=== PATIENT | male | born 1945 | race Caucasian/White ===

== ENCOUNTER 2018-11-22 16:57 | Emergency (ER) | payer SELFPAY ==
[~2018-11-22] VITALS: Ht 165.1 cm; Wt 77.1 kg
[2018-11-22 17:14] VITALS: BP 168/94
--- NOTE | 2018-11-22 18:11 | NUR ---
PATIENT PRESENTS TO ED WITH C/O SHARP 5/10 PAIN AND OPEN WOUND TO BLE, LEFT UPPER ARM AND BUTTOCKS X1 WEEK. BLE 2+ PITTING EDEMA, WITH ERYTEMA, TENDER TO TOUCH AND WOUNDS PRESENT, UNSTEADY GAIT NOTED; PT DENIES ANY FEVER, CP, SOB, OR COUGH AT THIS TIME; PATIENT STATES PAIN OF 5/10 IF NOT TOUCHING THE INFECTION AREA, 10/10 WHEN TOUCHING. VSS; PATIENT POSITIONED FOR COMFORT; HOB ELEVATED; BEDRAILS UP X2; BED DOWN. ER MD MADE AWARE OF PT STATUS.
--- NOTE | 2018-11-22 18:26 | NUR ---
Patient being evaluated by physician at bedside.
--- NOTE | 2018-11-22 18:35 | NUR ---
X-RAY AT BEDSIDE
[2018-11-22 18:58] LABS: BASOPHILS # (AUTO) 0.1 K/uL (0.00-0.22); BASOPHILS % (AUTO) 0.6 % (0.0-2.0); EOSINOPHILS # (AUTO) 0.1 K/uL (0-0.4); EOSINOPHILS % (AUTO) 1.1 % (0.0-4.0); HEMATOCRIT 42.6 % (36-52); HEMOGLOBIN 14.5 g/dL (12.0-18.0); LYMPHOCYTES # (AUTO) 1.1 K/uL (2.0-11.5); LYMPHOCYTES % (AUTO) 12.5 % (20.5-51.1); MEAN CORPUSCULAR HEMOGLOBIN 30 pg (27-31); MEAN CORPUSCULAR HGB CONC 34 g/dL (33-37); MEAN CORPUSCULAR VOLUME 87.8 fL (80-94); MONOCYTES # (AUTO) 0.6 K/uL (0.8-1.0); MONOCYTES % (AUTO) 6.5 % (1.7-9.3); NEUTROPHILS # (AUTO) 6.8 K/uL (1.8-7.7); NEUTROPHILS % (AUTO) 79.3 % (42.2-75.2); PLATELET COUNT (AUTO) 427 K/uL (140-450); RED BLOOD CELL COUNT(AUTO) 4.85 MIL/uL (4.20-6.10); RED CELL DISTRIBUTION WIDTH 13.1 % (11.6-13.7); WHITE BLOOD COUNT (AUTO) 8.6 K/uL (4.8-10.8)
--- NOTE | 2018-11-22 19:00 | NUR ---
PT STATED COULD NOT GIVE URINE AT THIS TIME, WILL FOLLOW UP LATER.
[2018-11-22 19:06] LABS: ANION GAP 12.5 (8-16); CARBON DIOXIDE 27.7 mmol/L (21-32); CHLORIDE 99 mmol/L (98-107); GLUCOSE 111 mg/dL (74-106); POTASSIUM 4.2 mmol/L (3.5-5.1); SODIUM SERUM 135 mmol/L (136-145); UREA NITROGEN, BLOOD 16 mg/dL (7-18)
[2018-11-22 19:12] LABS: ALBUMIN 3.3 g/dL (3.4-5.0); ASPARTATE AMINOTRANSFERASE 18 U/L (15-37); TOTAL BILIRUBIN 0.5 mg/dL (0.0-1.0)
--- NOTE | 2018-11-22 19:15 | NUR ---
DR ELIAS AT BEDSIDE EVALUATING PT
[2018-11-22] MEDS ORDERED: KETOROLAC 30 MG/ML VIAL IVP ONE (19:35)
[2018-11-22] MEDS ORDERED: VANCOMYCIN 1,000 MG in DEXTROSE 5% 250 ML IV ONE (19:35)
--- NOTE | 2018-11-22 19:55 | NUR ---
IV START: R AC 20G; FLUSHED WELL W/O RESISTANCE; NO REDNESS OR SWELLING NOTED; TRANSPARENT DRESSING APPLIED. PT TOLERATED WELL.
[2018-11-22] MEDS ORDERED: VANCOMYCIN 1,000 MG VIAL ONE (19:57)
--- NOTE | 2018-11-22 22:19 | NUR ---
Patient discharged with v/s stable. Written and verbal after care instructions given and explained. Patient alert, oriented and verbalized understanding of instructions. Patient has wheather appropriate clothes, food provided. Patient states 3/10 pain at this time. Patient states he will go back to the streets, patient preference. and Ambulatory with steady gait. All questions addressed prior to discharge. ID band removed. Patient advised to follow up with PMD. Rx of Bactrim, Motrin, and Bacitracin given. Patient educated on indication of medication including possible reaction and side effects. Opportunity to ask questions provided and answered.
[2018-11-22 23:23] VITALS: BP 118/76
== END 2018-11-22 22:19 | disposition home or self-care (01) ==
LOC: MED 16:57
DX: L03.115 Cellulitis of right lower limb (principal); L03.116 Cellulitis of left lower limb; L03.113 Cellulitis of right upper limb; L03.114 Cellulitis of left upper limb; L03.317 Cellulitis of buttock; I10 Essential (primary) hypertension
CPT/HCPCS: 36415; 71045; 80053; 83605; 83880; 84484; 85025; 87040; 93005; 96365; 96366; 96375; 99284; J1885; J3370; J7060; Q0092

== ENCOUNTER 2023-12-11 06:40 | Emergency (ER) | payer OTHER ==
[~2023-12-11] VITALS: Ht 165.1 cm; Wt 74.8 kg
[2023-12-11 06:45] VITALS: BP 190/85; PULSE 96; RESP 18; TEMP 98; O2SAT 99
[2023-12-11] MEDS ORDERED: BACITRACIN OINT 500 UNITS/GM PKT TP ONE (07:07)
[2023-12-11] MEDS: BACITRACIN OINT 500 UNITS/GM PKT TP ONE (07:10)
[2023-12-11 07:14] VITALS: BP 190/85; PULSE 96; RESP 18; TEMP 98; O2SAT 99
== END 2023-12-11 07:14 | disposition home or self-care (01) ==
LOC: MED 06:40
DX: S01.81XD Laceration without foreign body of other part of head, subsequent encounter (principal); I25.2 Old myocardial infarction; I10 Essential (primary) hypertension; X58.XXXA Exposure to other specified factors, initial encounter; Y93.89 Activity, other specified; Y92.89 Other specified places as the place of occurrence of the external cause; Y99.8 Other external cause status
CPT/HCPCS: 99282